=== PATIENT | female | born 1990 | race Caucasian/White ===

== ENCOUNTER 2020-11-16 07:32 | Outpatient (CLI) | payer OTHER, SELFPAY ==
--- NOTE | ~2020-11-16 | MR_ITS ---
EXAMINATION: MR clavicle LT wo/w con DATE: 11/16/2020 09:00 INDICATION: Left supraclavicular pain and swelling extending to the left ear and to the left shoulder . TECHNIQUE: Magnetic resonance imaging (MRI) of the left clavicle was performed without and with 10 mL Multihance intravenous contrast. A marker was placed over the region of concern. Sequences included axial, sagittal and coronal T1-weighted FSE, axial, sagittal and coronal fluid sensitive FSE STIR, a xial T1-weighted FS FSE and post contrast axial, sagittal and coronal T1-weighted FS FSE. COMPARISON: Left shoulder radiographs dated 11/01/2020 FINDINGS: Likely positional mild reversal of the normal cervical lordosis. Alignment is otherwise normal. Josie l marrow signal throughout. No fracture or pathologic marrow replacing process. Vertebral body and di sc heights are normal. No central canal or neural foraminal stenosis. Normal muscle bulk and signal i n the visualized neck, upper chest and left shoulder girdle. Vasculature and brachial plexus from the left neck to the left shoulder are unremarkable. No pathologically enlarged cervical, left axillary or superior mediastinal lymphadenopathy. Mucosal thickening in the bilateral ethmoid and maxillary si nuses with mucous retention cyst at the inferior left maxillary sinus. No abnormal masses, fluid penny ections or abnormally enhancing lesions identified. IMPRESSION: 1. Sinus disease. Otherwise unremarkable MRI of the left clavicle/clavicular region. Reviewed, dictated and finalized at location B. IMPRESSION: 1. Sinus disease. Otherwise unremarkable MRI of the left clavicle/clavicular re gion.
[2020-11-16 08:01] LABS: Estimated Glomerular Filt Rate > 60
== END 2020-11-16 07:33 | disposition home or self-care (01) ==
PROVIDERS: PCP Family Medicine; Visit Provider Orthopaedic Surgery
DX: M79.89 Other specified soft tissue disorders (principal); J32.9 Chronic sinusitis, unspecified
CPT/HCPCS: 73220; A9577